=== PATIENT | male | born 1995 | race Caucasian/White ===

== ENCOUNTER 2018-09-26 11:35 | Emergency (ER) | payer BC ==
[2018-09-26 12:23] VITALS: BP 114/72; PULSE 67; RESP 18; TEMP 98.7
--- NOTE | 2018-09-26 13:49 | ED ---
General Adult HPI - General Chief complaint: Extremity Injury, Upper Stated complaint: Wrist pain Time Seen by Provider: 09/26/18 13:12 Source: patient Mode of arrival: ambulatory Limitations: no limitations - History of Present Illness Initial comments: Patient is a 22-year-old male presenting to the emergency Department with complaints of left wrist pain 1 month. Patient denies any injury or falls to the wrist. Patient does play lacrosse and is left handed. Patient denies any numbness and tingling. No other complaints at this time. - Related Data Allergies Allergy/AdvReac Type Severity Reaction Status Date / Time No Known Allergies Allergy Verified 09/26/18 12:23 Review of Systems ROS Statement: Those systems with pertinent positive or pertinent negative responses have been documented in the HPI. ROS Other: All systems not noted in ROS Statement are negative. Past Medical History Past Medical History: No Reported History History of Any Multi-Drug Resistant Organisms: None Reported Additional Past Surgical History / Comment(s): knee, teste Past Psychological History: No Psychological Hx Reported Smoking Status: Never smoker Past Alcohol Use History: Occasional Past Drug Use History: Marijuana General Exam - General Exam Comments Initial Comments: GENERAL: Well-appearing, well-nourished and in no acute distress. HEAD: Atraumatic, normocephalic. EYES: Pupils equal round and reactive to light, extraocular movements intact, sclera anicteric, conjunctiva are normal. ENT: TMs normal, nares patent, oropharynx clear without exudates. Moist mucous membranes. NECK: Normal range of motion, supple without lymphadenopathy or JVD. LUNGS: Breath sounds clear to auscultation bilaterally and equal. No wheezes rales or rhonchi. HEART: Regular rate and rhythm without murmurs, rubs or gallops. ABDOMEN: Soft, nontender, normoactive bowel sounds. No guarding, no rebound. No masses appreciated. : Deferred EXTREMITIES: Pain with palpation in the left wrist dorsal aspect over the carpal bones. Pain with wrist extension and finger extension. Normal wrist range of motion. No erythema or edema. NEUROLOGICAL: Cranial nerves II through XII grossly intact. Normal speech, normal gait. PSYCH: Normal mood, normal affect. SKIN: Warm, Dry, normal turgor, no rashes or lesions noted. Limitations: no limitations Course Vital Signs 09/26/18 12:20 Temperature 98.7 F Pulse Rate 67 Respiratory 18 Rate Blood Pressure 114/72 O2 Sat by Pulse 96 Oximetry Medical Decision Making - Medical Decision Making Patient is a 22-year-old male complaining of left wrist pain x one month. Patient denies any injury or trauma. X-rays the left wrist reveals no acute fractures or dislocations. Patient will be discharged and given orthopedic referral. Disposition Clinical Impression: Left wrist tendinitis, Left wrist pain Disposition: HOME SELF-CARE Condition: Stable Instructions (If sedation given, give patient instructions): Wrist Injury (ED) Additional Instructions: Please return to the Emergency Department if symptoms worsen or any other concerns. Follow-up with orthopedics if pain continues. Is patient prescribed a controlled substance at d/c from ED?: No Referrals: None,Stated [Primary Care Provider] - 1-2 days Odell Culver MD [STAFF PHYSICIAN] - 1-2 days
--- NOTE | 2018-09-26 13:58 | XR ---
Left wrist HISTORY: Left wrist pain 4 views of the left wrist Bone mineralization, joint spaces and alignment are maintained. IMPRESSION: No fracture or dislocation. Wrist MRI may be of benefit.
== END 2018-09-26 14:24 | disposition home or self-care (01) ==
LOC: EC 11:35
DX: M77.9 Enthesopathy, unspecified (principal)
CPT/HCPCS: 99283

== ENCOUNTER → 2019-09-20 | Outpatient (CLI) | payer BC ==
--- NOTE | 2019-09-20 14:29 | ECHOS ---
STRESS ECHOCARDIOGRAM LUMASON: Vial INDICATIONS: Chest pain MEDICATIONS: No BASELINE HEART RATE: 69 BASELINE BLOOD PRESSURE: 111/51 MAXIMUM HEART RATE: 185 MAXIMUM BLOOD PRESSURE: 131/80 85% MPHR: 168 100% MPHR: 198 METS: 16.5 MAXIMUM STAGE REACHED: 6 TOTAL EXERCISE TIME: 16:30 INDICATION: Chest pain. Baseline EKG shows sinus rhythm with early repolarization changes. Patient exercised on Humphrey protocol for a total of 16.5 minute, achieving 18 METS, 85% of predicted maximal heart rate without chest pain or diagnostic ST-segment depression. Baseline echo shows normal left ventricular size, wall motion, systolic function. Postexercise there is normal hyperdynamic response of myocardium noted. CONCLUSION: 1. Excellent exercise tolerance. 2. Negative stress echo. MMODL / IJN: [id number] /
== END | disposition home or self-care (01) ==
LOC: RADNMMAIN 09:58
PROVIDERS: ATTEND Family Medicine
DX: R00.1 Bradycardia, unspecified (principal); R07.9 Chest pain, unspecified
CPT/HCPCS: 93225; 93226; 93351

== ENCOUNTER 2021-10-18 20:38 | Emergency (ER) | payer BC ==
[2021-10-18 20:44] VITALS: BP 132/58; PULSE 96; RESP 18; TEMP 97.4
[2021-10-18] MEDS ORDERED: TOPICAL SKIN ADHESIVE 1 EACH AMP TOPICAL ONE (21:25)
--- NOTE | 2021-10-18 21:42 | ED ---
Wound/Laceration HPI - General Chief Complaint: Wound/Laceration Stated Complaint: Right Hand Laceration Time Seen by Provider: 10/18/21 21:04 Source: patient, RN notes reviewed Mode of arrival: ambulatory Limitations: no limitations - History of Present Illness Initial Comments: This is a pleasant, [id number] 26-year-old male who was trying to close a Tupperware container when he was lacerated with a small piece of broken glass. Patient did not believe there is any chance of foreign body. Patient up-to-date on tetanus. Laceration to the palmar aspect of the right hand. No other injuries. No distal paresthesias. No distal proximal injuries. No headache, no fever or chills, no changes in vision or hearing, no sore throat or difficulty with speech, no neck pain, no chest pain or shortness of breath, no abdominal pain, no nausea or vomiting, no changes in urination or bowel movements, no numbness or tingling, no skin rashes or lesions. - Related Data Allergies Allergy/AdvReac Type Severity Reaction Status Date / Time No Known Allergies Allergy Verified 10/18/21 20:41 Review of Systems ROS Statement: Those systems with pertinent positive or pertinent negative responses have been documented in the HPI. ROS Other: All systems not noted in ROS Statement are negative. Past Medical History Past Medical History: No Reported History History of Any Multi-Drug Resistant Organisms: None Reported Additional Past Surgical History / Comment(s): knee, teste Past Psychological History: No Psychological Hx Reported Smoking Status: Never smoker Past Alcohol Use History: Occasional Past Drug Use History: Marijuana General Exam Limitations: no limitations General appearance: alert, in no apparent distress Head exam: Present: atraumatic, normocephalic, normal inspection Eye exam: Present: normal appearance, EOMI Neck exam: Present: normal inspection Respiratory exam: Present: normal lung sounds bilaterally. Absent: respiratory distress, wheezes, rales, rhonchi, stridor Cardiovascular Exam: Present: regular rate, normal rhythm, normal heart sounds. Absent: systolic murmur, diastolic murmur, rubs, gallop, clicks GI/Abdominal exam: Present: soft. Absent: tenderness Extremities exam: Present: full ROM, other (Patient has a superficial laceration to the palmar aspect the left hand. Approximately 4 cm in length. Very superficial. No foreign body. infectious process. Full range of motion with regard to phalanges, hand, and wrist. Pulses intact. Capillary refill is normal). Absent: tenderness Back exam: Present: normal inspection, full ROM Neurological exam: Present: alert, oriented X3, CN II-XII intact Psychiatric exam: Present: normal affect, normal mood Skin exam: Present: warm, dry, normal color Course Vital Signs 10/18/21 20:41 Temperature 97.4 F L Pulse Rate 96 Respiratory 18 Rate Blood Pressure 132/58 O2 Sat by Pulse 100 Oximetry Procedures - Laceration Laceration #1 Consent Obtained: verbal consent Indication: laceration Site: upper extremity, hand (Right hand palmar) Size (cm): 4 Description: linear Depth: simple, single layer Pre-repair: wound explored, irrigated extensively, deep structures intact Type of Sutures: other (Tissue adhesive) Technique: simple, interrupted Patient Tolerated Procedure: well, no complications Additional Comments: Wound was very superficial. No evidence of foreign body. Closed with tissue adhesive. Medical Decision Making - Medical Decision Making Superficial wound to the right hand. Essentially an abrasion contiguous with a tiny laceration of 1 cm. Entire laceration 4 cm. Cleansed thoroughly, closed with tissue adhesive. Wound care discussed. Signs and symptoms of infection discussed. Patient was up-to-date on tetanus. Patient was told to return to the ER for any signs or symptoms worsen. Told to return immediately if any other problems arise. All questions answered. Treatment plan discussed. Patient in agreement Every effort has been made to ensure accuracy of this dictation. However, due to the limitations of electronic medical records and dictation devices, errors in charting still occur. Manager Facility, Dr. Antonio Disposition Clinical Impression: Laceration of hand without foreign body Disposition: HOME SELF-CARE Condition: Good Instructions (If sedation given, give patient instructions): Skin Adhesive Care (ED) Additional Instructions: Follow-up with your regular physician as directed. Return to the ER immediately if any symptoms worsen, new symptoms arise, or any other problems develop. Is patient prescribed a controlled substance at d/c from ED?: No Referrals: Fuad Barker DO [Primary Care Provider] - 1-2 days (As needed) Time of Disposition: 21:42
--- NOTE | 2021-10-18 21:57 | XR ---
EXAMINATION TYPE: XR hand complete RT DATE OF EXAM: 10/18/2021 COMPARISON: NONE HISTORY: Laceration TECHNIQUE: 3 views FINDINGS: There is mild deformity of the fifth metacarpal consistent with old healed fracture. I see no acute fracture nor dislocation. No evidence of radiopaque foreign body. IMPRESSION: No acute abnormality of the right hand. No foreign body seen.
== END 2021-10-18 21:48 | disposition home or self-care (01) ==
LOC: EC 20:38
DX: S61.411A Laceration without foreign body of right hand, initial encounter (principal); F12.90 Cannabis use, unspecified, uncomplicated; W25.XXXA Contact with sharp glass, initial encounter
CPT/HCPCS: 12002; 99283

== ENCOUNTER → 2022-08-20 | Outpatient (CLI) | payer BC ==
--- NOTE | 2022-08-20 07:29 | MR ---
EXAMINATION TYPE: MR lumbar spine wo con DATE OF EXAM: 08/20/2022 COMPARISON: NONE HISTORY: Low back pain. Degenerative disc disease for 10 years per patient with pain going into left buttocks and thigh. TECHNIQUE: Multiplanar, multisequence imaging of the lumbar spine is performed without IV contrast. FINDINGS: Sagittal images of the lumbar spine show vertebral body heights and alignment to appear sat isfactory. There is disc desiccation at L4-L5 and L5-S1 levels. Posterior annular tear L4-L5 level. T here is mild disc space narrowing L4-L5 and L5-S1 levels. The conus medullaris is normal in position and signal ending at L1-L2 disc space level. The bone marrow signal intensity is within normal limi ts. Axial images at T12-L1 through L3-L4 levels appear within normal limits. Axial images at L4-L5 level show tiny broad-based right paracentral disc protrusion minimally effacin g the anterior thecal sac. The bilateral neuroforamina. Axial images at L5-S1 level show focal central disc protrusion but the spinal canal is preserved. Herrera ateral neural foramina remain patent. Paraspinal muscle bulk is maintained. IMPRESSION: Some mild multilevel degenerative changes in the lower lumbar spine as detailed above. No significant disc herniation is seen to account for patient's left-sided radiculopathy type symptoms.
--- NOTE | 2022-08-20 07:47 | XR ---
EXAMINATION TYPE: XR lumbar spine with bend/flex DATE OF EXAM: 08/20/2022 7:31 AM INDICATION: Patient age:Male; 26 years old; Reason for study: M51.36 INTERVERTEBRAL DISC DEGENERATION, LUMBAR RE; PHH. COMPARISON: MRI lumbar spine 08/20/2022 TECHNIQUE: Standing flexion, lateral, extension, and frontal views of the lumbar spine were obtained. FINDINGS: There are 5 lumbar type vertebral bodies identified. No evidence of any acute osseous patho logy. No evidence of loss of vertebral body height is seen. There is normal alignment of the lumbar vertebral bodies. IMPRESSION: No acute process.
== END | disposition home or self-care (01) ==
LOC: RADMRIMAIN 06:33
PROVIDERS: ATTEND Physical Medicine & Rehabilitation
DX: M51.36 Other intervertebral disc degeneration, lumbar region (principal); M51.27 Other intervertebral disc displacement, lumbosacral region; M47.816 Spondylosis without myelopathy or radiculopathy, lumbar region
CPT/HCPCS: 72114; 72148